=== PATIENT | female | born 1990 | race Caucasian/White ===

== ENCOUNTER 2017-01-02 11:25 | Inpatient (IN) | payer OTHER ==
[2017-01-02] MEDS ORDERED: DEXTROSE 5%-LACTATED RINGERS 1,000 ML IV SCH (13:00)
[2017-01-02 13:23] VITALS: BMI 29.2
[2017-01-02] MEDS: DEXTROSE 5%-LACTATED RINGERS 1,000 ML IV SCH ×2 (13:37→17:10)
[2017-01-02] MEDS ORDERED: BUTORPHANOL TARTRATE 1 MG/ML VIAL IVPUSH ONE (13:55)
--- NOTE | 2017-01-02 13:55 | PN ---
Progress Note (short form) - Note Progress Note: cx 2 to 3 cm, 75, vx -3 mi, fhr cat 1 contraction q 3 min , mild
[2017-01-02 14:29] LABS: BASOPHIL 0.1 % (0-2.0); MCH 27.4 pg (25.7-33.7); MCHC 33.5 g/dl (32.0-36.0); MEAN CELL VOLUME 81.8 fl (80-96); NEUTROPHILS 84.7 % (42.8-82.8); PLATELET COUNT 171 K/MM3 (134-434); RDW 13.1 % (11.6-15.6); WHITE BLOOD COUNT 12.8 K/mm3 (4.0-10.0)
[2017-01-02 14:45] LABS: INR 0.96 (0.82-1.09); PROTHROMBIN TIME (PATIENT) 10.5 SEC (9.98-11.88)
[2017-01-02 14:48] LABS: ACTIVATED PTT 28.6 SECONDS (26.9-34.4)
[2017-01-02 15:03] LABS: CALCIUM 8.6 mg/dL (8.5-10.1); COCKROFT - GAULT 156.315; CREATININE 0.6 mg/dL (0.55-1.02)
--- NOTE | 2017-01-02 23:48 | HP ---
Past Medical History - Primary Care Physician PCP:: Fortunato Smith - Admission Chief Complaint: 41 weeks, labor History Source: Patient - Past Medical History ...: 1 ...Para: 0 ...LMP: 03/20/16 ... Weeks Gestation by Dates: 41.0 ...EDC by Dates: 12/26/16 ...EDC by Sono: 12/25/16 - Past Surgical History Hx Myomectomy: No Hx Transabdominal Cerclage: No - Smoking History Smoking history: Never smoked Have you smoked in the past 12 months: No - Alcohol/Substance Use Hx Alcohol Use: No - Social History History of Recent Travel: No Home Medications - Allergies Allergies/Adverse Reactions: Allergies Allergy/AdvReac Type Severity Reaction Status Date / Time No Known Allergies Allergy Verified 01/02/17 12:03 - Home Medications Home Medications: Ambulatory Orders Pnv95/Ferrous Fumarate/FA [ Vitamin Tablet] 1 each PO DAILY 12/20/16 Review of Systems - Review of Systems Constitutional: reports: No Symptoms Eyes: reports: No Symptoms HENT: reports: No Symptoms Neck: reports: No Symptoms Cardiovascular: reports: No Symptoms Musculoskeletal: reports: No Symptoms Integumentary: reports: No Symptoms Neurological: reports: No Symptoms Endocrine: reports: No Symptoms Hematology/Lymphatic: reports: No Symptoms Psychiatric: reports: No Symptoms Physical Exam - Maternity Vital Signs: Vital Signs Temperature 98.2 F 01/02/17 22:00 Pulse Rate 80 01/02/17 23:00 Respiratory Rate 20 01/02/17 23:00 Blood Pressure 129/79 01/02/17 23:00 O2 Sat by Pulse Oximetry (%) Constitutional: Yes: Well Nourished, No Distress, Calm Eyes: Yes: WNL, Conjunctiva Clear, EOM Intact HENT: Yes: WNL, Atraumatic, Normocephalic Neck: Yes: WNL, Supple, Trachea Midline Cardiovascular: Yes: WNL, Regular Rate and Rhythm Breast(s): Yes: WNL - Abdominal Exam/OB Fundal Height: 40 Number of Fetuses: Single Presentation: Vertex Contractions: Yes Regularity: Regular Intensity: Moderate Monitor Mode: External Heart Rate (range): 140 Heart Rate Location: [facility] Category: I Accelerations: Uniform Decelerations: None - Vaginal Exam/OB Vaginal Bleediing: No Speculum Exam: No Dilatation (cm): 3cm Effacement (%): 70 Amniotic Membrane Status: Intact Meconium: Moderate Presentation: Vertex/Position Station: -3 - Physical Exam Musculoskeletal: Yes: WNL Extremities: Yes: WNL Edema: LLE: Trace, RLE: Trace Psychiatric: Yes: WNL - Labs Lab Results: CBC, BMP 01/02/17 13:25 01/02/17 13:25 Problem List - Problems (1) with 41 completed weeks gestation Code(s): Z3A.41 - 41 WEEKS GESTATION OF (2) Labor established Code(s): DGL5786 - Assessment/Plan admit, fhm,
[2017-01-03] MEDS: DEXTROSE 5%-LACTATED RINGERS 1,000 ML IV SCH ×3 (00:48→16:43)
[2017-01-03] MEDS: OXYTOCIN 15 UNITS/ LR 250 ML 250 ML IVPB SCH (06:00)
[2017-01-03] MEDS: PRENATAL VITAMINS W/ FOLIC ACID TABLET (FP) PO SCH (10:28)
[2017-01-03] MEDS ORDERED: ELECTROLYTE-148 SOLN 1,000 ML IV ONE (14:20)
[2017-01-03] MEDS: FENTANYL/BUPIVACAINE/NS/PF - PCEA - 50 ML DISP.SYRIN EP SCH (15:10)
[2017-01-03] MEDS: ELECTROLYTE-148 SOLN 1,000 ML IV SCH (15:30)
--- NOTE | 2017-01-03 18:25 | PN ---
Progress Note (short form) - Note Progress Note: cx 4 cm 75 vx -2/-3 arom, clear fluid , contraction q 2 min, fhr cat 1, will revaluate in 3 hrs if no progress advised c/s Problem List - Problems (1) with 41 completed weeks gestation Code(s): Z3A.41 - 41 WEEKS GESTATION OF (2) Labor established Code(s): KOD2019 -
--- NOTE | 2017-01-03 23:31 | PN ---
Progress Note (short form) - Note Progress Note: cx 4 cm, 75 vx -2 , mr, fhr cat 1contraction q 2 min,in view of no dilation advised c/s, rba discussed Problem List - Problems (1) with 41 completed weeks gestation Code(s): Z3A.41 - 41 WEEKS GESTATION OF (2) Labor established Code(s): HFF1573 -
[2017-01-04] MEDS ORDERED: morphine SULFATE/Preservative Free 0.5 MG/ML (1cc Syringe) EP ONE (00:33)
[2017-01-04] MEDS ORDERED: ONDANSETRON 4 MG/2 ML VIAL IVPB PRN (00:33)
[2017-01-04] MEDS ORDERED: IBUPROFEN 600 MG TABLET (FP) PO PRN ×2 (00:33→00:37)
[2017-01-04] MEDS ORDERED: IBUPROFEN 800 MG/8 ML IJ IVPB PRN (00:37)
[2017-01-04] MEDS ORDERED: diphenhydrAMINE HCL 25 MG CAPSULE (FP) PO PRN (00:37)
[2017-01-04] MEDS ORDERED: oxyCODONE HCL 5 MG TABLET PO PRN ×2 (00:37)
[2017-01-04] MEDS ORDERED: SIMETHICONE 80 MG TAB.CHEW (FP) PO PRN (00:37)
[2017-01-04] MEDS ORDERED: BENZOCAINE 20% 57 GM BOTTLE TP PRN (00:37)
[2017-01-04] MEDS ORDERED: BENZOCAINE 28 GM HEMORRHOIDAL OINTMENT PR PRN (00:37)
[2017-01-04] MEDS ORDERED: WITCH HAZEL 50% (TUCKS) 40 PAD/JAR PAD TP PRN (00:37)
[2017-01-04] MEDS ORDERED: METHYLERGONOVINE MALEATE 0.2 MG/1 ML AMP IM PRN (00:37)
[2017-01-04] MEDS ORDERED: OXYTOCIN 20 UNITS in 0.9% NS 1,000 ML IV SCH (00:45)
[2017-01-04] MEDS ORDERED: CEFAZOLIN 1 GM/D5W 50 ML IVPB SCH (02:00)
[2017-01-04] MEDS: PRENATAL VITAMINS W/ FOLIC ACID TABLET (FP) PO SCH (09:39)
[2017-01-04] MEDS: CEFAZOLIN 1 GM/D5W 50 ML IVPB SCH ×2 (10:27→17:28)
--- NOTE | 2017-01-04 13:55 | PN ---
Progress Note, Physician Chief Complaint: Pt. not yet ambulating. Marks still in place. No FARRELL, pain controlled. No anesthesia complaints. - Current Medication List Current Medications: Active Medications Acetaminophen (Tylenol -) 650 mg PO Q4H PRN PRN Reason: FEVER OR PAIN Benzocaine (Americaine Ointment -) 1 applic [place] PRN PRN PRN Reason: PAIN Benzocaine (Americaine 20% [place] -) 1 spray TP PRN PRN PRN Reason: PAIN Bisacodyl (Dulcolax Suppository -) 10 mg RC PRN PRN PRN Reason: CONSTIPATION Diphenhydramine HCl (Benadryl Injection -) 25 mg IVPUSH Q4H PRN PRN Reason: Pruritis Diphenhydramine HCl (Benadryl -) 25 mg PO Q8H PRN PRN Reason: FOR ITCHING Fentanyl/Bupivacaine/Sodium Chlor (Bupivicaine 0.125%/Fentanyl 2mcg/Ml Pcea -) 50 ml EP ASDIR FROY PRN Reason: Protocol Last Admin: 01/03/17 15:10 Dose: 50 ml Dextrose/Lactated Ringer's (D5-Lr -) 1,000 mls @ 125 mls/hr IV ASDIR FROY Last Admin: 01/03/17 16:43 Dose: Not Given Oxytocin/Lactated Ringer's (Lactated Ringer+ 15 Units Pitocin) 250 mls @ 1 mls/ hr IVPB ASDIR FROY; 0.06 UNIT/HR PRN Reason: Protocol Last Titration: 01/03/17 23:00 Dose: 0 unit/hr Parenteral Electrolytes (Plasma-Lyte 148 -) 1,000 mls @ 125 mls/hr IV ASDIR FROY Last Admin: 01/03/17 15:30 Dose: 125 mls/hr Dextrose/Lactated Ringer's (D5-Lr -) 1,000 mls @ 125 mls/hr IV ASDIR FROY Cefazolin Sodium (Ancef 1 Gm Premixed Ivpb -) 50 mls @ 100 mls/hr IVPB Q8H-IV FROY Stop: 01/04/17 18:29 Last Admin: 01/04/17 10:27 Dose: 100 mls/hr Ibuprofen (Motrin -) 600 mg PO Q4H PRN PRN Reason: PAIN Ibuprofen (Motrin -) 600 mg PO Q4H PRN PRN Reason: PAIN Methylergonovine Maleate (Methergine Injection -) 0.2 mg IM Q4H PRN PRN Reason: EXCESSIVE BLEEDING Oxycodone HCl (Roxicodone -) 5 mg PO Q4H PRN PRN Reason: PAIN LEVEL 1-5 Oxycodone HCl (Roxicodone -) 10 mg PO Q4H PRN PRN Reason: PAIN LEVEL 6-10 Multivit/Folic Acid/Iron ( Vitamins (Sjr) -) 1 tab PO DAILY FORY Last Admin: 01/04/17 09:39 Dose: 1 tab Senna/Docusate Sodium (Pericolace -) 2 tablet PO HS PRN PRN Reason: CONSTIPATION Simethicone (Mylicon -) 80 mg PO Q4H PRN PRN Reason: GAS Witch Angelic/Glycerin (Tucks Pads -) 1 pad TP PRN PRN PRN Reason: PAIN - Objective Vital Signs: Vital Signs Temperature 98.4 F 01/04/17 10:00 Pulse Rate 66 01/04/17 10:00 Respiratory Rate 18 01/04/17 12:00 Blood Pressure 135/71 01/04/17 10:00 O2 Sat by Pulse Oximetry (%) 100 01/04/17 00:55 Constitutional: Yes: Well Nourished, No Distress, Calm Musculoskeletal: Yes: WNL Neurological: Yes: WNL, Alert, Oriented ...Motor Strength: WNL Labs: CBC, BMP 01/02/17 13:25 01/02/17 13:25 INR, PTT INR 0.96 (0.82-1.09) 01/02/17 13:25 Assessment/Plan POD#1 s/p primary under spinal. Doing well. D/C from anesthesia care once patient voids.
[2017-01-04] MEDS: ACETAMINOPHEN 325 MG TABLET (FP) PO PRN (15:38)
[2017-01-04] MEDS: DEXTROSE 5%-LACTATED RINGERS 1,000 ML IV SCH ×2 (18:29→18:30)
[2017-01-04] MEDS: OXYTOCIN 15 UNITS/ LR 250 ML 250 ML IVPB SCH (18:30)
[2017-01-04] MEDS: FENTANYL/BUPIVACAINE/NS/PF - PCEA - 50 ML DISP.SYRIN EP SCH (18:31)
[2017-01-04] MEDS: ELECTROLYTE-148 SOLN 1,000 ML IV SCH (18:31)
[2017-01-05] MEDS ORDERED: BISACODYL 10 MG SUPP.RECT RC PRN (00:37)
--- NOTE | 2017-01-05 01:54 | OP ---
DATE OF OPERATION: 01/04/2017 PREOPERATIVE DIAGNOSIS: at 41.1 weeks' gestation, Pitocin induction, failure to dilate. POSTOPERATIVE DIAGNOSIS: at 41.1 weeks' gestation, Pitocin induction, failure to dilate. PROCEDURE: Primary low segment transverse section. SURGEON: Fortunato Smith MD HOOP MAKER MACHINE: Yolanda Obando DO ANESTHESIA: Epidural. ANESTHESIOLOGIST: Dr. Coon ESTIMATED BLOOD LOSS: 500 mL. OPERATION: The patient was taken to the operating room and underwent adequate epidural anesthesia. Abdomen and perineum were prepped and draped. Pfannenstiel abdominal skin incision was made. Abdominal wall was cut layer by layer until the peritoneum was exposed and incised. Upon entering the abdominal cavity, the lower uterine segment was identified and uterovesical fold of peritoneum was established. The bladder was pushed down. With the lower blade of the [place] retractor in the pelvis, a low transverse incision was made. The incision was extended laterally. Amniotic sac was entered with clear fluid. The head was delivered from the occiput posterior position. The nasopharynx was suctioned. Live baby was delivered. Placenta was delivered manually. The uterine cavity was cleaned of all remaining tissue. Uterine incision was closed in 2 layers, 1st layer with 0 Biosyn continuous suture and the 2nd layer with 0 Biosyn imbricating the 1st layer. Bladder flap was closed with 0 Biosyn continuous suture. Both tubes and ovaries were checked and normal. No active bleeding was seen. All of the lap, sponge, and instrument counts were correct. The peritoneum was closed with 0 Biosyn continuous suture. Muscles were brought together with interrupted sutures of 0 Biosyn. Fascia was closed with 0 Biosyn continuous suture. Subcutaneous fat was closed with interrupted suture of 0 Biosyn. The skin was closed with diane. Patient tolerated the procedure well and left the OR in good condition. FORTUNATO SMITH M.D. [id number]
--- NOTE | 2017-01-05 08:05 | PN ---
Progress Note (short form) - Note Progress Note: pod 1 doping well, ambulating, voids ok CBC, BMP 01/02/17 13:25 Last Vital Signs Temp Pulse Resp BP Pulse Ox 97.9 F 67 18 123/75 100 01/04/17 22:00 01/04/17 22:00 01/05/17 00:00 01/04/17 22:00 01/04/17 00:55 abdomen soft, non tender, no distension, no cva uterus firm, non tender incision dry, clean no calf tenderness lochia mild plan ambulate , advance diet cbc Problem List - Problems (1) with 41 completed weeks gestation Code(s): Z3A.41 - 41 WEEKS GESTATION OF (2) Labor established Code(s): WUE9435 -
[2017-01-05] MEDS: ACETAMINOPHEN 325 MG TABLET (FP) PO PRN (09:01)
[2017-01-05] MEDS ORDERED: INFLUENZA VACCINE 60 MCG/0.5 ML (P/F DISP.SYRIN 16-17) IM ONE (10:00)
[2017-01-05] MEDS: PRENATAL VITAMINS W/ FOLIC ACID TABLET (FP) PO SCH (10:00)
[2017-01-05] MEDS: DEXTROSE 5%-LACTATED RINGERS 1,000 ML IV SCH ×2 (11:59→18:19)
[2017-01-05 13:43] LABS: BASOPHIL 0.6 % (0-2.0); EOSINOPHIL 0.1 % (0-4.5); MCH 27.4 pg (25.7-33.7); MCHC 32.7 g/dl (32.0-36.0); MEAN CELL VOLUME 83.7 fl (80-96); MEAN PLT VOLUME 10.2 fl (7.5-11.1); NEUTROPHILS 87.6 % (42.8-82.8); PLATELET COUNT 160 K/MM3 (134-434); RDW 13.7 % (11.6-15.6)
--- NOTE | 2017-01-05 15:24 | PATH ---
Surgical Pathology Report Patient Name: TRICIA DESOUZA Med. Rec. #: [id number] /Age/Gender: 1990 (Age: 26) / F Account: [id number] Location: [facility] OBS/PHOTOGRAPHER FINISH Taken: 01/03/2017 Received: 01/04/2017 Reported: 01/05/2017 Physicians: Fortunato Smith M.D. Specimen(s) Received PLACENTA Clinical History , 41.2 weeks post dates, failure to progress Primary c/section Final Diagnosis PLACENTA, DELIVERY: FOCALLY DISRUPTED THIRD TRIMESTER PLACENTA WITH MODERATE PREVILLOUS, PERIVILLOUS, AND PRECHORIONIC FIBRIN DEPOSITION, DYSTROPHIC CALCIFICATIONS, THREE VESSEL UMBILICAL CORD, AND UNREMARKABLE PLACENTAL MEMBRANES. Electronically Signed Shemar Juan M.D. Gross Description The specimen is received fresh, labeled "placenta" and is a 516 gram, 18.0 x 15.0 x 2.0 cm placenta with attached membranes and umbilical cord. The attached membranes are schwartz, translucent with focal opacities and insert marginally. The umbilical cord measures 29 cm in length and averages 1 cm in diameter. The cord inserts eccentrically, 4.5 cm to the nearest margin. No true knots or strictures are identified. Cut surface of the umbilical cord reveals 3 vessels. The surface is shane-blue with fibrin deposition and appropriate caliber vessels. The maternal surface is red-brown with focal defects. Sectioning reveals red-brown, spongy parenchyma. No focal lesions are identified. Buffing Turner And Counter sections are submitted in three cassettes as follows: 1- membrane rolls and umbilical cord; 2-3- full thickness sections of placenta. /01/04/2017 [facility]01/04/2017
[2017-01-05] MEDS: OXYTOCIN 15 UNITS/ LR 250 ML 250 ML IVPB SCH (18:18)
[2017-01-06] MEDS: PRENATAL VITAMINS W/ FOLIC ACID TABLET (FP) PO SCH (10:08)
--- NOTE | 2017-01-06 13:50 | PN ---
Post Progress Note - Subjective Subjective: no complains, , no complains Post Day: 2 Type of Delivery: Primary C/S Vital Signs: Vital Signs Temperature 97.9 F 01/06/17 09:44 Pulse Rate 104 H 01/06/17 09:44 Respiratory Rate 20 01/06/17 09:44 Blood Pressure 105/73 01/06/17 09:44 O2 Sat by Pulse Oximetry (%) 100 01/04/17 00:55 Breast Exam: Yes: Soft, Other (BF ). No: Engorged Uterus: Yes: Fundus Firm, Fundus below umbilicus, Non-tender Incision: Yes: [place] intact. No: Redness, Oozing Abdomen/GI: Yes: Abdomen soft, Passing flatus (BM NOT DONE ), Tolerating PO ( DIET ). No: Abdominal Distention, Tender Lochia: Yes: Rubra Lochia, amount: Moderate Extremities: Yes: Calves non-tender Perineum: Yes: Intact Activity: Ambulating - Labs Labs: CBC WBC 19.0 K/mm3 (4.0-10.0) H D 01/05/17 07:00 RBC 4.23 M/mm3 (3.60-5.2) 01/05/17 07:00 Hgb 11.6 GM/dL (10.7-15.3) 01/05/17 07:00 Hct 35.4 % (32.4-45.2) 01/05/17 07:00 MCV 83.7 fl (80-96) 01/05/17 07:00 MCHC 32.7 g/dl (32.0-36.0) 01/05/17 07:00 RDW 13.7 % (11.6-15.6) 01/05/17 07:00 Plt Count 160 K/MM3 (134-434) 01/05/17 07:00 MPV 10.2 fl (7.5-11.1) 01/05/17 07:00 Neutrophils % 87.6 % (42.8-82.8) H 01/05/17 07:00 Lymphocytes % 8.2 % (8-40) D 01/05/17 07:00 Monocytes % 3.5 % (3.8-10.2) L 01/05/17 07:00 Eosinophils % 0.1 % (0-4.5) D 01/05/17 07:00 Basophils % 0.6 % (0-2.0) D 01/05/17 07:00 Assessment/Plan STABLE. plan ct po care
[2017-01-06] MEDS ORDERED: SENNOSIDES/DOCUSATE COMBO (SENNA PLUS) TABLET (UD) PO PRN (22:00)
[2017-01-07 07:38] LABS: BASOPHIL 0.3 % (0-2.0); EOSINOPHIL 1.8 % (0-4.5); MCH 27.4 pg (25.7-33.7); MCHC 33.5 g/dl (32.0-36.0); MEAN CELL VOLUME 81.7 fl (80-96); MEAN PLT VOLUME 9.7 fl (7.5-11.1); NEUTROPHILS 73.1 % (42.8-82.8); PLATELET COUNT 182 K/MM3 (134-434); RDW 13.2 % (11.6-15.6); WHITE BLOOD COUNT 11.9 K/mm3 (4.0-10.0)
--- NOTE | 2017-01-07 07:43 | PN ---
Post Progress Note - Subjective Subjective: no complains Post Day: 3 Type of Delivery: Primary C/S Vital Signs: Vital Signs Temperature 97.6 F 01/06/17 21:09 Pulse Rate 67 01/06/17 21:09 Respiratory Rate 20 01/06/17 21:09 Blood Pressure 129/74 01/06/17 21:09 O2 Sat by Pulse Oximetry (%) 100 01/04/17 00:55 Breast Exam: Yes: Soft, Other (BF ). No: Engorged Uterus: Yes: Fundus Firm, Fundus below umbilicus, Non-tender Incision: Yes: [place] intact. No: Redness, Oozing Abdomen/GI: Yes: Abdomen soft, Passing flatus, Tolerating PO (diet). No: Abdominal Distention, Tender Lochia: Yes: Rubra Lochia, amount: Moderate Extremities: Yes: Calves non-tender Perineum: Yes: Intact Activity: Ambulating - Labs Labs: CBC WBC 19.0 K/mm3 (4.0-10.0) H D 01/05/17 07:00 RBC 4.23 M/mm3 (3.60-5.2) 01/05/17 07:00 Hgb 11.6 GM/dL (10.7-15.3) 01/05/17 07:00 Hct 35.4 % (32.4-45.2) 01/05/17 07:00 MCV 83.7 fl (80-96) 01/05/17 07:00 MCHC 32.7 g/dl (32.0-36.0) 01/05/17 07:00 RDW 13.7 % (11.6-15.6) 01/05/17 07:00 Plt Count 160 K/MM3 (134-434) 01/05/17 07:00 MPV 10.2 fl (7.5-11.1) 01/05/17 07:00 Neutrophils % 87.6 % (42.8-82.8) H 01/05/17 07:00 Lymphocytes % 8.2 % (8-40) D 01/05/17 07:00 Monocytes % 3.5 % (3.8-10.2) L 01/05/17 07:00 Eosinophils % 0.1 % (0-4.5) D 01/05/17 07:00 Basophils % 0.6 % (0-2.0) D 01/05/17 07:00 Assessment/Plan stable. plan discharge today
[2017-01-07 08:14] VITALS: BP 121/79; PULSE 87; TEMP 98
[2017-01-07] MEDS: PRENATAL VITAMINS W/ FOLIC ACID TABLET (FP) PO SCH (09:50)
--- NOTE | 2017-01-09 21:19 | DS ---
Physical Exam-WRAPPER SELECTOR Vital Signs: Vital Signs Temperature 98 F 01/07/17 08:12 Pulse Rate 87 01/07/17 08:12 Respiratory Rate 20 01/07/17 08:12 Blood Pressure 121/79 01/07/17 08:12 O2 Sat by Pulse Oximetry (%) 100 01/04/17 00:55 Constitutional: Yes: Well Nourished, No Distress, Calm Eyes: Yes: WNL, Conjunctiva Clear, EOM Intact HENT: Yes: WNL, Atraumatic, Normocephalic Neck: Yes: WNL, Supple, Trachea Midline Cardiovascular: Yes: WNL, Regular Rate and Rhythm Respiratory: Yes: WNL, Regular, CTA Bilaterally Gastrointestinal: Yes: WNL ...Rectal Exam: Yes: WNL Renal/: Yes: WNL External Genitalia: Yes: Normal Vaginal Exam: Yes: Normal ....Post : Yes: Uterus firm, Uterus non-tender, Slight lochia rubra Breast(s): Yes: WNL Musculoskeletal: Yes: WNL Extremities: Yes: WNL Integumentary: Yes: WNL Wound/Incision: Yes: Clean/Dry, Well Approximated Neurological: Yes: WNL, Alert, Oriented ...Motor Strength: WNL Psychiatric: Yes: WNL, Alert, Oriented Labs: CBC, BMP 01/07/17 06:10 01/02/17 13:25 Delivery - Delivery Section: Primary (no complication), Low Flap Transverse Type of Anesthesia: Epidural Episiotomy/Laceration: None EBL (cc): 500 Delivery, Single - Stages of Labor Date 1st Stage Initiatied: 01/03/17 Time 1st Stage Initiated: 15:00 Date of Delivery: 01/04/17 Time of Delivery: 00:12 Time Placenta Delivered: 00:13 Placenta: Yes: Manual Removal - Condition of Infant Carburetor Expert/Char Filter Operator Helper Present: No Infant Gender: Male Weight: 8 lb 15 oz Position: OP Total Hours ROM (Hrs/Mins): 5hrs/53mins - 1 Minute Total Score: 9 5 Minutes Total Score: 9 - [place] Feeding Plan Initial Plan: Exclusive throughout hospitalization Discharge Summary Reason For Visit: POST DATES,EARLY LABOR Procedures: Principal: primary lst c/s Condition: Stable - Instructions Diet, Activity, Other Instructions: Post Instructions DIET: Continue good diet high in protein, calcium, and iron rich foods. Drink at least eight (8) glasses of water daily in addition to other fluids. ct Regular diet MEDICATIONS: Continue vitamins and iron as previously directed. Motrin and Tylenol may be taken for minor discomfort. ACTIVITY: Mild to moderate exercise may be started in two (2) weeks. Take frequent rest periods. Resume normal activity after six (6) week check up. WOUND CARE OF OPERATIVE SITE: Continue use of perineal bottle until vaginal discharge stops. Keep area clean. Shower daily. Keep abdominal wound dry. Report any drainage or redness to physician. Tub baths, tampons and douches are not permitted for [address] Breast feeding & 0r Bottle feeding BREAST CARE: (For those that are not breast feeding): If engorgement occurs: Wear tight fitting bra. Take Tylenol or Motrin for pain. Apply cold packs (ice in bags to each breast ) FAMILY PLANNING: There are many control alternatives to pursue and they should be discussed at your first office visit. You may resume sexual activity after your six (6) week check up. (Remember, is not a contraceptive) NEXT PHYSICIAN APPOINTMENT: Be certain to call for a one (1) week appointment, unless otherwise directed. call [phone] for appt with Self for removal of diane on call [facility] for appointment. [phone] Call Clinic or got to Emergency Dept if you have any of the following: Heavy vaginal bleeding Painful urination Leg pain Unusual odor noted to vaginal bleeding High fever Red streaking noted on breast Referrals: Fortunato Smith MD [Staff Physician] - Disposition: HOME - Home Medications Comprehensive Discharge Medication List: Ambulatory Orders Pnv95/Ferrous Fumarate/FA [ Vitamin Tablet] 1 each PO DAILY 12/20/16 Acetaminophen [Tylenol .Regular Strength -] 650 mg PO Q4H PRN #0 tablet Ibuprofen [Motrin -] 600 mg PO Q4H PRN #30 tablet 01/06/17 Vitamins (Sjr) - 1 tab PO DAILY tablet 01/06/17
== END 2017-01-07 11:30 | disposition home or self-care (01) | DRG 540 ==
LOC: JDEL 11:25 → JLDR 12:30 → J3W 01-04 03:00
PROVIDERS: ADMIT Obstetrics & Gynecology; ATTEND Obstetrics & Gynecology
PROC: 10D00Z1 Extraction of Products of Conception, Low, Open Approach (ICD-10-PCS; principal; 2017-01-04)
PROC: 3E033VJ Introduction of Other Hormone into Peripheral Vein, Percutaneous Approach (ICD-10-PCS; 2017-01-04)
DX: O62.0 Primary inadequate contractions (principal); O61.0 Failed medical induction of labor; O48.0 Post-term pregnancy; Z3A.41 41 weeks gestation of pregnancy; Z37.0 Single live birth
CPT/HCPCS: 36415; 80048; 85025; 85610; 85730; 86593; 86850; 86900; 86901; 88307-TC; 90686; G0008

== ENCOUNTER 2023-04-23 06:00 | Inpatient (IN) | payer OTHER ==
[~2023-04-23 06:00] MED LIST: CITRIC ACID/SODIUM CITRATE 30 ML UNIT-DOSE CUP PO ONE; ELECTROLYTE-148 SOLN 500 ML IV ONE
[2023-04-23] MEDS ORDERED: ELECTROLYTE-148 SOLN 1,000 ML IV SCH ×2 (06:30→08:30)
[2023-04-23 06:40] VITALS: BMI 28.7
[2023-04-23] MEDS ORDERED: FENTANYL CITRATE/PF 50 MCG/ML VIAL ONE (08:26)
[2023-04-23] MEDS ORDERED: morphine SULFATE/PF 1 MG/2 ML (2cc Syringe - QUVA) ONE (08:26)
[2023-04-23] MEDS ORDERED: ceFAZolin SODIUM 1 GM VIAL ONE (08:32)
[2023-04-23] MEDS ORDERED: PHENYLEPHRINE HCL 10 MG/1 ML SINGLE DOSE VIAL ONE (08:33)
[2023-04-23] MEDS ORDERED: ONDANSETRON 4 MG/2 ML VIAL ONE (09:17)
[2023-04-23] MEDS ORDERED: OXYTOCIN 10 UNITS/ML VIAL ONE (09:17)
[2023-04-23] MEDS ORDERED: ONDANSETRON 4 MG/2 ML VIAL IVPUSH PRN (10:37)
[2023-04-23] MEDS ORDERED: OXYTOCIN 20 UNITS in 0.9% NS 20 UNIT/1,000 ML INFUS.BAG IV ONE (10:38)
[2023-04-23] MEDS: OXYTOCIN 20 UNITS in 0.9% NS 20 UNIT/1,000 ML INFUS.BAG IV SCH ×2 (10:40→17:35)
[2023-04-23] MEDS ORDERED: BENZOCAINE 20% 57 GM BOTTLE TP PRN (10:53)
[2023-04-23] MEDS ORDERED: IBUPROFEN 800 MG/8 ML IJ IVPB PRN (10:53)
[2023-04-23] MEDS ORDERED: ACETAMINOPHEN 325 MG TABLET (FP) PO PRN (10:53)
[2023-04-23] MEDS ORDERED: SENNOSIDES/DOCUSATE COMBO (SENNA PLUS) TABLET (UD) PO PRN (10:53)
[2023-04-23] MEDS ORDERED: WITCH HAZEL 50% (TUCKS) 40 PAD/JAR PAD TP PRN (10:53)
[2023-04-23] MEDS ORDERED: BENZOCAINE 28 GM HEMORRHOIDAL OINTMENT TP PRN (10:53)
[2023-04-23] MEDS ORDERED: METHYLERGONOVINE MALEATE 0.2 MG/1 ML AMP IM PRN (10:53)
[2023-04-23 11:09] LABS: VENOUS BASE EXCESS -4.2 mmol/L (-2-2); VENOUS O2 SATURATION 53.2 % (70-80); VENOUS PCO2 42.9 mmHg (38-52); VENOUS PH 7.323 (7.310-7.410)
[2023-04-23 11:12] LABS: ARTERIAL BLD GAS O2 SATURATION 23.8 % (95-98); ARTERIAL BLOOD GAS BASE EXCESS -3.6 mmol/L (-2-2)
[2023-04-23 11:15] LABS: ALLENS TEST POSITIVE
[2023-04-23 11:17] LABS: ARTERIAL BLOOD GAS PO2 18.8 mmHg (80-100)
[2023-04-23] MEDS ORDERED: oxyCODONE HCL 5 MG TABLET PO PRN ×2 (22:53)
[2023-04-24] MEDS: SIMETHICONE 80 MG TAB.CHEW (FP) PO PRN ×3 (01:43→18:02)
[2023-04-24 08:17] LABS: BASO % 0.1 % (0-2.0); EOS % 0.2 % (0-4.5); HEMATOCRIT 34.1 % (32.4-45.2); HEMOGLOBIN 11.4 GM/dL (10.7-15.3); LYMPH % 13.9 % (8-40); MCH 25.5 pg (25.7-33.7); MCHC 33.3 g/dl (32.0-36.0); MEAN CELL VOLUME 76.7 fl (80-96); MEAN PLT VOLUME 9.7 fl (7.5-11.1); MONO % 5.7 % (3.8-10.2); NEUT % 80.1 % (42.8-82.8); PLATELET COUNT 194 10^3/uL (134-434); RBC 4.45 M/mm3 (3.60-5.2); RDW 14.6 % (11.6-15.6); WHITE BLOOD COUNT 14.9 K/mm3 (4.0-10.0)
[2023-04-24] MEDS: ENOXAPARIN NA (PORCINE) 40 MG/0.4 ML DISP.SYRIN SQ SCH (09:35)
[2023-04-24] MEDS: PRENATAL VITAMINS W/ FOLIC ACID TABLET (FP) PO SCH (09:35)
[2023-04-24] MEDS: IBUPROFEN 600 MG TABLET (FP) PO PRN ×2 (09:36→18:02)
[2023-04-24] MEDS ORDERED: BISACODYL 10 MG SUPP.RECT RC PRN (10:53)
[2023-04-25] MEDS: IBUPROFEN 600 MG TABLET (FP) PO PRN (05:59)
[2023-04-25] MEDS: SIMETHICONE 80 MG TAB.CHEW (FP) PO PRN (05:59)
[2023-04-25] MEDS: PRENATAL VITAMINS W/ FOLIC ACID TABLET (FP) PO SCH (09:33)
[2023-04-25] MEDS: ENOXAPARIN NA (PORCINE) 40 MG/0.4 ML DISP.SYRIN SQ SCH (09:33)
[2023-04-25 10:25] VITALS: BP 127/81; PULSE 79; RESP 20; TEMP 98.1
== END 2023-04-25 13:00 | disposition home or self-care (01) | DRG 540 ==
LOC: JLDR 06:00 → J3W 12:30
PROVIDERS: ADMIT Obstetrics & Gynecology; ATTEND Obstetrics & Gynecology
PROC: 10D00Z1 Extraction of Products of Conception, Low, Open Approach (ICD-10-PCS; principal; 2023-04-23)
PROC: 0UB70ZZ Excision of Bilateral Fallopian Tubes, Open Approach (ICD-10-PCS; 2023-04-23)
DX: O34.211 Maternal care for low transverse scar from previous cesarean delivery (principal); N85.8 Other specified noninflammatory disorders of uterus; Z30.2 Encounter for sterilization; Z3A.39 39 weeks gestation of pregnancy; Z37.0 Single live birth
CPT/HCPCS: 36415; 36600; 80053; 82803; 85025; 85610; 85730; 86780; 86850; 86900; 86901; 87389; 94010